=== PATIENT | female | born 1975 | race African-American/Black ===

== ENCOUNTER 2018-03-06 01:09 | Emergency (ER) | payer OTHER ==
[~2018-03-06] VITALS: Ht 160 cm; Wt 61.2 kg
[2018-03-06] MEDS ORDERED: CLONAZEPAM0.5 MG (01:33)
[2018-03-06] MEDS ORDERED: CLONAZEPAM0.5 MG PO (03:25)
== END 2018-03-06 03:28 | disposition home or self-care (01) ==
LOC: ER 01:09
DX: F06.4 Anxiety disorder due to known physiological condition (principal)